=== PATIENT | male | born 1995 | race Asian ===

== ENCOUNTER 2021-04-20 08:27 | Emergency (ER) | payer OTHER ==
[2021-04-20 09:08] LABS: Urine Blood Negative (Negative); Urine Glucose Negative (Negative); Urine Protein Negative (Negative)
[2021-04-20 09:16] LABS: Absolute Lymphocytes (CBC) 1.7 K/uL (0.7-4.9); Basophils % 0.5 % (0-1.3); Hematocrit 46.4 % (39.6-49.0); Lymphocytes % 32.8 % (15.3-44.8); MPV 8.3 fL (7.6-11.3); RBC Red Blood Cell Count 4.96 M/uL (4.33-5.43)
[2021-04-20 09:37] LABS: Urine Bacteria NONE SEEN /HPF (NONE SEEN); Urine RBC NONE SEEN /HPF (NONE SEEN)
--- NOTE | 2021-04-20 11:43 | RAD REPORT ---
EXAM DESCRIPTION: CTAbdomen Pelvis W Contrast - 04/20/2021 11:32 am CLINICAL HISTORY: ABD PAIN COMPARISON: No comparisons TECHNIQUE: CT of the abdomen and pelvis was performed. All CT scans are performed using dose optimization technique as appropriate and may include automated exposure control or mA/KV adjustment according to patient size. FINDINGS: Lower chest: No acute abnormality. Liver: No acute abnormality or suspicious lesions. Biliary: No biliary ductal dilatation. Stomach: No significant focal abnormality. Duodenum: No significant focal abnormality. Pancreas: No significant abnormality. Spleen: No significant abnormality. Adrenal: No suspicious lesions. Kidney/ureter: No hydronephrosis. No renal calculi. Retroperitoneum: No retroperitoneal adenopathy. Vascular: No aneurysm. Bowel: No significant focal abnormality. No appendicitis. Peritoneum: No ascites or free air. Bladder: Grossly unremarkable. Reproductive: No adnexal masses. Bones: No acute fracture. Other: n/a IMPRESSION: No acute intra-abdominal or pelvic finding.
--- NOTE | 2021-04-20 11:57 | EDPHYS ---
Physician Documentation [facility] Name: Juan Paula Age: 25 yrs Sex: Male : 1995 Arrival Date: 04/20/2021 Time: 08:28 Bed 13 Private MD: ED Physician Fabian Belcher HPI: 04/20 08:44 This 25 yrs old Male presents to ER via Ambulatory with complaints of abdominal pain. rn 08:44 The patient presents with abdominal pain right lower quadrant. Onset: The rn symptoms/episode began/occurred 2 day(s) ago. The symptoms do not radiate. Associated signs and symptoms: Pertinent positives: nausea, Pertinent negatives: blood in stools, chest pain, constipation, diarrhea, dysuria, fever, hematuria, testicular pain. The symptoms are described as burning. Modifying factors: The symptoms are alleviated by nothing, the symptoms are aggravated by nothing. Severity of pain: At its worst the pain was moderate in the emergency department the pain has improved. The patient has not experienced similar symptoms in the past. The patient has not recently seen a physician. Pt reports RLQ abd pain for 2 days, assoc with nausea, no fever/vomiting/diarrhea. Reports has had testicular swelling bilaterally for months but not currently, has appt with urology. Denies trauma. No urinary symptoms. no penile discharge. . Historical: - Allergies: 08:35 shrimp; ll1 - PMHx: 08:35 None; ll1 - PSHx: 08:35 None; ll1 - Immunization history:: Client reports receiving the 1st dose of the Covid vaccine. - Social history:: Smoking status: Reported history of juuling and/or vaping. - Family history:: not pertinent. - Hospitalizations: : No recent hospitalization is reported. ROS: 08:44 Constitutional: Negative for fever, chills, and weight loss, Eyes: Negative for injury, rn pain, redness, and discharge, Neck: Negative for injury, pain, and swelling, Cardiovascular: Negative for chest pain, palpitations, and edema, Respiratory: Negative for shortness of breath, cough, wheezing, and pleuritic chest pain, Abdomen/GI: + RLQ abd pain and nausea Back: Negative for injury and pain, : Negative for injury, bleeding, discharge, and swelling, MS/Extremity: Negative for injury and deformity, Skin: Negative for injury, rash, and discoloration, Neuro: Negative for headache, weakness, numbness, tingling, and seizure. Exam: 08:44 Constitutional: This is a well developed, well nourished patient who is awake, alert, rn and in no acute distress. Head/Face: Normocephalic, atraumatic. Eyes: Periorbital areas with no swelling, redness, or edema. Cardiovascular: Regular rate and rhythm. No pulse deficits. Respiratory: No increased work of breathing, no retractions or nasal flaring. Abdomen/GI: Soft, mild tenderness RLQ, no rebound or masses Skin: Warm, dry MS/ Extremity: Pulses equal, no cyanosis. Neuro: Awake and alert, GCS 15 Vital Signs: 08:35 BP 126 / 73; Pulse 77; Resp 16; Temp 97.8; Pulse Ox 100% ; Weight 65.77 kg; Height 5 ll1 ft. 8 in. (172.72 cm); Pain 5/10; 09:54 BP 117 / 79; Pulse 68; Resp 17; Pulse Ox 100% on R/A; tw2 11:00 BP 112 / 84; Pulse 81; Resp 15; Pulse Ox 100% ; Pain 5/10; eo2 11:54 BP 125 / 72; Pulse 66; Resp 17; Pulse Ox 100% on R/A; tw2 12:27 BP 118 / 85; Pulse 64; Resp 17; Pulse Ox 100% on R/A; tw2 12:55 BP 121 / 95; Pulse 72; Resp 15; Pulse Ox 100% ; Pain 0/10; eo2 08:35 Body Mass Index 22.05 (65.77 kg, 172.72 cm) ll1 11:00 pt denies need for pain medication at this time eo2 MDM: 08:30 Patient medically screened. rn 11:55 Differential diagnosis: appendicitis, diverticulitis, non-specific abd pain, rn Ureterolithiasis, urinary tract infection, STI. Data reviewed: vital signs, nurses notes, lab test result(s), radiologic studies, CT scan, and as a result, I will discharge patient. Counseling: I had a detailed discussion with the patient and/or guardian regarding: the historical points, exam findings, and any diagnostic results supporting the discharge/admit diagnosis, lab results, radiology results, the need for outpatient follow up, to return to the emergency department if symptoms worsen or persist or if there are any questions or concerns that arise at home. Special discussion: Based on the patient's Hx, exam, and Dx evaluation, there is no indication for emergent surgery or inpatient Tx. It is understood by the patient/guardian that if the Sx's persist or worsen they need to return immediately for re-evaluation. I discussed with the patient/guardian in detail that at this point there is no indication for admission to the hospital. It is understood, however, that if the symptoms persist or worsen the patient needs to return immediately for re-evaluation. ED course: No acute findings on CT abdomen pelvis. Urine clean. CBC normal. No glucose in the urine. Unable to obtain other labs due to lab machine broken. Will DC home. Patient at discharge expresses concern of possible STI but denies any rash or discharge to test. States has been having issue for months, and requests prophylactic treatment.. 11:56 ED course: Recommended urology follow-up for chronic testicular problems, needs to be rn fully evaluated and make sure no testicular cancer. Patient understands. Again, patient denies any acute issues with testicles.. 04/20 08:43 Order name: Basic Metabolic Panel 04/20 08:43 Order name: CBC with Diff; Complete Time: 09:25 04/20 08:43 Order name: Hepatic Function 04/20 08:43 Order name: Lipase rn 04/20 08:43 Order name: Urine Microscopic Only; Complete Time: 10:01 04/20 09:08 Order name: Urine Dipstick-Ancillary; Complete Time: 09:25 EDMS 04/20 08:43 Order name: IV Saline Lock; Complete Time: 09:25 04/20 08:43 Order name: Labs collected and sent; Complete Time: 09:25 04/20 08:43 Order name: Urine Dipstick-Ancillary (obtain specimen); Complete Time: 09:25 04/20 08:43 Order name: CT Abd/Pelvis - IV Contrast Only; Complete Time: 11:46 rn 04/20 11:40 Order name: CREATININE WHOLE BLOOD; Complete Time: 11:46 EDMS Administered Medications: 12:19 Drug: Rocephin (cefTRIAXone) 250 mg {Note: reconstituted with 0.9ml 1% lidocaine .} eo2 Route: IM; Site: right ventrogluteal; 12:55 Follow up: BP 121 / 95; Pulse 72 bpm; Resp 15 bpm; Pulse Ox 100% ; Pain 0/10 Adult; eo2 Response: No adverse reaction Disposition Summary: 04/20/21 11:56 Discharge Ordered Location: Home rn Problem: new rn Symptoms: have improved rn Condition: Stable rn Diagnosis - Lower abdominal pain, unspecified rn Followup: rn - With: Private Physician - When: As needed - Reason: Recheck today's complaints, Re-evaluation by your physician Discharge Instructions: - Abdominal Pain, Adult rn - Discharge Summary Sheet tw2 Forms: - Medication Reconciliation Form rn - Thank You Letter rn - Antibiotic rn interventional - Work release form tw2 - Prescription Opioid Use rn Prescriptions: - Doxycycline Hyclate 100 mg Oral Tablet - take 1 tablet by ORAL route every 12 hours; 20 tablet; Refills: 0, Product rn Selection Permitted Signatures: Dispatcher [employer] EDFabian Parish MD MD rn Lewis, Lynsay, RN RN ll1 Kori Good RN RN eo2
--- NOTE | 2021-04-20 11:57 | ER ---
Nurse's Notes [facility] Name: Juan Paula Age: 25 yrs Sex: Male : 1995 Arrival Date: 04/20/2021 Time: 08:28 Bed 13 Private MD: Diagnosis: Lower abdominal pain, unspecified Presentation: 04/20 08:35 Chief complaint: Patient states: R flank pain with nausea and urinary frequency began ll1 Sunday. Bilateral flank pain yesterday. No known fever. Coronavirus screen: Vaccine status: Patient reports receiving the 1st dose of the Covid vaccine. Client denies travel out of the [place] in the last 14 days. nausea, Client presents with at least one sign or symptom that may indicate coronavirus-19. Standard/surgical mask placed on the client. Ebola Screen: Patient denies travel to an Ebola-affected area in the 21 days before illness onset. Initial Sepsis Screen: Does the patient meet any 2 criteria? No. Patient's initial sepsis screen is negative. Does the patient have a suspected source of infection? No. Patient's initial sepsis screen is negative. Risk Assessment: Do you want to hurt yourself or someone else? Patient reports no desire to harm self or others. Onset of symptoms was April 18, 2021. 08:35 Method Of Arrival: Ambulatory ll1 08:35 Acuity: CELIA 3 ll1 Historical: - Allergies: 08:35 shrimp; ll1 - PMHx: 08:35 None; ll1 - PSHx: 08:35 None; ll1 - Immunization history:: Client reports receiving the 1st dose of the Covid vaccine. - Social history:: Smoking status: Reported history of juuling and/or vaping. - Family history:: not pertinent. - Hospitalizations: : No recent hospitalization is reported. Screenin:26 Abuse screen: Denies threats or abuse. Nutritional screening: No deficits noted. eo2 Tuberculosis screening: No symptoms or risk factors identified. Fall Risk None identified. Assessment: 09:26 General: Appears in no apparent distress. comfortable, Behavior is calm, cooperative. eo2 Pain: Complains of pain in RLQ abdomen Quality of pain is described as burning. Neuro: No deficits noted. Denies dizziness, headache. Cardiovascular: No deficits noted. Heart tones S1 S2. Respiratory: No deficits noted. Breath sounds are clear bilaterally. GI: Reports lower abdominal pain, nausea, RLQ abd pain onset Sunday, b/l on Sunday, today, presents with pain only in RLQ described as "burning" sensation and associated with nausea, denies V/D. : Reports urinary frequency, since Problems with "swollen testicles" per pt, states he's being followed by a urologist in [place], Denies burning with urination, discharge, incontinence. : no CVA tenderness noted Denies. 11:19 Reassessment: Pt ANGEL to CT . eo2 11:54 Reassessment: provider at bedside at this time giving pt update on results and poc. tw2 11:54 Reassessment: Patient appears in no apparent distress at this time. Patient and/or tw2 family updated on plan of care and expected duration. Pain level reassessed. Patient is alert, oriented x 3, equal unlabored respirations, skin warm/dry/pink. Vital Signs: 08:35 BP 126 / 73; Pulse 77; Resp 16; Temp 97.8; Pulse Ox 100% ; Weight 65.77 kg; Height 5 ll1 ft. 8 in. (172.72 cm); Pain 5/10; 09:54 BP 117 / 79; Pulse 68; Resp 17; Pulse Ox 100% on R/A; tw2 11:00 BP 112 / 84; Pulse 81; Resp 15; Pulse Ox 100% ; Pain 5/10; eo2 11:54 BP 125 / 72; Pulse 66; Resp 17; Pulse Ox 100% on R/A; tw2 12:27 BP 118 / 85; Pulse 64; Resp 17; Pulse Ox 100% on R/A; tw2 12:55 BP 121 / 95; Pulse 72; Resp 15; Pulse Ox 100% ; Pain 0/10; eo2 08:35 Body Mass Index 22.05 (65.77 kg, 172.72 cm) ll1 11:00 pt denies need for pain medication at this time eo2 ED Course: 08:28 Patient arrived in ED. am2 08:30 Fabian Belcher MD is Attending Physician. rn 08:35 Arm band placed on Patient placed in an exam room, on a stretcher. ll1 08:37 Triage completed. ll1 09:00 Awaiting lab results, Awaiting CT Scan. eo2 09:00 Inserted saline lock: 20 gauge in right antecubital area, using aseptic technique. eo2 09:25 Kori Good, RN is Primary Nurse. eo2 09:25 Urine Microscopic Only Sent. eo2 09:25 Basic Metabolic Panel Sent. eo2 09:25 Hepatic Function Sent. eo2 09:25 Lipase Sent. eo2 09:26 Patient has correct armband on for positive identification. Bed in low position. Call eo2 light in reach. Door closed. Noise minimized. 09:26 No provider procedures requiring assistance completed. eo2 11:32 CT Abd/Pelvis - IV Contrast Only In Process Unspecified. EDMS 12:22 Awaiting: monitoring post IM multimedia programmer. eo2 12:56 IV discontinued, intact, No redness/swelling at site. eo2 Administered Medications: 12:19 Drug: Rocephin (cefTRIAXone) 250 mg {Note: reconstituted with 0.9ml 1% lidocaine .} eo2 Route: IM; Site: right ventrogluteal; 12:55 Follow up: BP 121 / 95; Pulse 72 bpm; Resp 15 bpm; Pulse Ox 100% ; Pain 0/10 Adult; eo2 Response: No adverse reaction Outcome: 11:56 Discharge ordered by . rn 12:56 Discharged to home ambulatory. eo2 12:56 Condition: stable 12:56 Discharge instructions given to patient, Instructed on discharge instructions, follow up and referral plans. medication usage, Demonstrated understanding of instructions, follow-up care, medications, Prescriptions given X 1. 12:58 Patient left the ED. eo2 Signatures: Dispatcher [employer] EDMS Fabian Belcher MD MD rn Wise, Tara, RN RN 2 Ayana Gaytan [facility] Jamey Bautista RN RN ll1 Kori Good, JOANN RN eo2
[2021-04-20] MEDS ORDERED: CEFTRIAXONE 250 MG/VIAL ONE (12:03)
[2021-04-20] MEDS ORDERED: LIDOCAINE 1% MPF 5 ML VIAL ONE (12:06)
[2021-04-20 12:44] LABS: Albumin 3.9 g/dL (3.4-5.0); Bilirubin Direct 0.1 mg/dL (0-0.2); Bilirubin Total 0.5 mg/dL (0.2-1.0); Potassium 4.1 mmol/L (3.5-5.1); Protein, Total 7.9 g/dL (6.4-8.2)
[2021-04-20 13:03] VITALS: TEMP 97.8; O2SAT 100
[2021-04-20 13:10] VITALS: BP 121/95
== END 2021-04-20 12:58 | disposition home or self-care (01) ==
LOC: ER 08:27
DX: R10.31 Right lower quadrant pain (principal)
CPT/HCPCS: 85025; 80048; 36415; 82565; 80076; 83690; 74177; 96372; 99284; Q9967; J0696; 81003; 81015